=== PATIENT | male | born 1985 | race African-American/Black ===

== ENCOUNTER 2017-06-26 01:25 | Emergency (ER) | payer BC ==
[~2017-06-26 01:25] MED LIST: ERYT1O RIGHT EYE
[2017-06-26] MEDS ORDERED: IBUPROFEN 800 MG TAB PO SCH (01:48)
[2017-06-26] MEDS ORDERED: AMOXICILLIN/CLAVULANATE K 875 MG TAB PO SCH (02:20)
[2017-06-26] MEDS ORDERED: AUGM875T3 PO (04:09)
--- NOTE | 2017-06-26 04:10 | PD ---
HPI Chief Complaint: ENT Complaint Time Seen by Provider: 01:55 Travel History International Travel<30 days: No Contact w/Intl Traveler<30days: No Traveled to known affect area: No History of Present Illness HPI 31-year-old male presents to the emergency department for complaint of one day of sore throat pain 6/10 in intensity. Patient's had subjective fevers no chills has had sweats no cough no shortness of breath no nausea vomiting no diarrhea no dysuria no abdominal pain no flank pain and no skin rash. Last Tylenol was one hour prior to arrival to the emergency department. Patient denies any significant past medical history is had previous ankle and foot surgery denies tobacco use alcohol use. Patient denies inability to swallow his own saliva. PFSH Past Medical History Narrative Medical Negative past medical history; ankle/foot surgery; no tobacco use no alcohol use : Nursing notes reviewed Diminished Hearing: No Musculoskeletal: Yes (CHRONIC RIGHT FOOT/BACK PAIN) Social History Alcohol Use: Yes (X2 PER MONTH/LAST INTAKE 2 MONTHS AGO) Tobacco Use: No Substance Use: No Allergies-Medications (Allergen,Severity, Reaction): Coded Allergies: No Known Allergies (Verified , 08/02/15) Reported Meds & Prescriptions Reported Meds & Active Scripts Active Erythromycin Opht 0.5% Oint (Erythromycin) 0.5 % Oint 1 Applic RIGHT EYE Q6HR 5 Days Instill 1/2 inch Review of Systems Except as stated in HPI: all other systems reviewed are Neg General / Constitutional: Positive: Fever, No: Chills (subjective) HENT: Positive: Sore Throat, No: Congestion Cardiovascular: No: Chest Pain or Discomfort Respiratory: No: Shortness of Breath Gastrointestinal: No: Nausea, Vomiting, Abdominal Pain Genitourinary: No: Decreased Urinary Output, Flank Pain Musculoskeletal: No: Myalgias, Arthralgias Skin: No Rash Neurologic: No: Weakness Psychiatric: No: Anxiety Hematologic/Lymphatic: No: Lymph Node Enlargement Physical Exam Narrative GENERAL: Well-developed well-nourished, no acute distress no respiratory distress; no stridor or hoarseness. SKIN: Warm and dry. HEAD: Normocephalic. EYES: No scleral icterus. No injection or drainage. ENT: Mucous membranes moist posterior pharynx erythematous with mild edema no exudative change; tympanic membranes no redness no dullness to loss of landmarks. NECK: Supple, trachea midline. No JVD or lymphadenopathy. CARDIOVASCULAR: Regular rate and rhythm without murmurs, gallops, or rubs. RESPIRATORY: Breath sounds equal bilaterally. No accessory muscle use. GASTROINTESTINAL: Abdomen soft, non-tender, nondistended. MUSCULOSKELETAL: No cyanosis, or edema. BACK: Nontender without obvious deformity. No CVA tenderness. MDM Medical Decision Making Medical Screen Exam Complete: Yes Emergency Medical Condition: Yes Medical Record Reviewed: Yes Interpretation(s) Rapid strep antigen: Positive Differential Diagnosis Pharyngitis, strep throat, sinusitis, viral syndrome Narrative Course Rapid strep antigen and specimen collected and patient administered ibuprofen 800 mg Rapid strep antigen is resulted as positive patient given first dose of oral antibiotic Augmentin 875 Patient is stable for outpatient management Diagnosis Primary Impression: Streptococcal sore throat Referrals: Primary Care Physician 2 days Patient Instructions: General Instructions Departure Forms: Tests/Procedures, Work Release Special Instructions: No work 2 days Additional Instructions: Increase fluid hydration Complete course of antibiotic as prescribed Follow up with primary care provider No work 2 days Take acetaminophen/Tylenol every 4 hours as needed for fever 100.4F or greater ; take ibuprofen/Motrin/Advil 800 mg as often as every 8 hours as needed for fever 100.4F or greater for pain associated inflammation Return to the emergency department for any concerns or change in condition Med/Other Pt SpecificInfo: Prescription(s) given Scripts Amoxicillin-Clavulanate (Augmentin) 875-125 Mg Tab 1 TAB PO BID for Infection for 10 Days, #20 TAB 0 Refills Prov: Jada Rivers MD 06/26/17 Disposition: 01 DISCHARGE HOME Jada Rivers MD Jun 26, 2017 04:10
== END 2017-06-26 02:48 | disposition home or self-care (01) ==
LOC: PHED 01:25
DX: J02.0 Streptococcal pharyngitis (principal); B95.0 Streptococcus, group A, as the cause of diseases classified elsewhere
CPT/HCPCS: 87880; 99283